=== PATIENT | male | born 1975 | race Asian ===

== ENCOUNTER 2025-05-09 15:17 | Emergency (ER) | payer MEDICAID ==
[~2025-05-09] VITALS: Ht 170.2 cm; Wt 84.1 kg
[2025-05-09 15:20] VITALS: TEMP 98.7
[2025-05-09] MEDS ORDERED: ACET-3385 PO (16:27)
[2025-05-09] MEDS ORDERED: IBUP-1492 PO (16:27)
[2025-05-09] MEDS ORDERED: LIDO-57 TP (16:27)
[2025-05-09] MEDS: KETOROLAC TROMETHAMINE 30 MG/ML VIAL IM ONE (16:37)
[2025-05-09] MEDS: ACETAMINOPHEN 500 MG TABLET PO ONE (16:38)
[2025-05-09] MEDS: LIDOCAINE 5% TRANSDERMAL PATCH TD ONE (16:39)
[2025-05-09 17:05] VITALS: BP 156/99; PULSE 87; RESP 20; O2SAT 99
== END 2025-05-09 19:01 | disposition home or self-care (01) ==
LOC: EMS 15:17
DX: S39.012A Strain of muscle, fascia and tendon of lower back, initial encounter (principal); Z98.890 Other specified postprocedural states; X50.1XXA Overexertion from prolonged static or awkward postures, initial encounter; Y93.89 Activity, other specified; Y92.89 Other specified places as the place of occurrence of the external cause; Y99.8 Other external cause status
CPT/HCPCS: 99283; 96372; J1885